=== PATIENT | female | born 1950 | race American Indian/Alaskan Native ===

== ENCOUNTER 2019-04-29 07:26 | Outpatient (CLI) | payer MEDICARE, BC ==
[2019-04-29 07:48] LABS: Hematocrit 37.6 % (30.3-42.9); Hemoglobin 12.8 gm/dl (10.1-14.3); Mean Corpuscular HGB Conc 34 % (30-34); Mean Corpuscular Volume 92 fl (79-97); Platelet Count 237 K/mm3 (140-440); Red Cell Distribution Width 14.2 % (13.2-15.2)
[2019-04-29 08:20] LABS: Alanine Aminotransferase 22 units/L (7-56); Albumin 3.9 g/dL (3.9-5); BUN/Creatinine Ratio 19; Blood Urea Nitrogen 19 mg/dL (7-17); Calcium 9.2 mg/dL (8.4-10.2); Chol/HDL Ratio 5.32 %; HDL Cholesterol 46 mg/dL (40-59); Hemolysis Index 4; LDL Cholesterol,Direct 185 mg/dL (50-130)
[2019-04-29 08:22] LABS: ABG Base Excess -0.3 mmol/L (-2.0-3.0); ABG Methemoglobin 0.4 % (0.0-1.5); ABG Oxygen Saturation 95.8 % (95.0-99.0); ABG PCO2 37.8 mm Hg; ABG PH 7.42 pH Units (7.350-7.450); ABG PO2 76.2 mm Hg (80.0-90.0)
--- NOTE | 2019-04-29 09:45 | Fluoroscopy Report ---
Contrast upper GI: History "heartburn indigestion reflux. Findings: Transit of barium through the esophagus is normal. No extrinsic or intrinsic filling defect in the esophagus. Gastric emptying appears normal. No evidence of gastric or duodenal ulcer. Evidence of gastritis. Multiple diverticula are noted the distal part of the duodenum adjacent to the jejunum. The diverticula are large. Small diverticulum is noted at the mid inner second part of duodenum the. No evidence of gastroesophageal reflux noted. Impression: No evidence of gastroesophageal reflux. Multiple diverticula along the duodenum. Evidence of gastritis.
== END 2019-04-29 07:27 | disposition home or self-care (01) ==
LOC: FLUORO 07:26
PROVIDERS: ATTEND Internal Medicine
DX: K57.30 Diverticulosis of large intestine without perforation or abscess without bleeding (principal); K29.70 Gastritis, unspecified, without bleeding; G47.33 Obstructive sleep apnea (adult) (pediatric); I10 Essential (primary) hypertension; K21.9 Gastro-esophageal reflux disease without esophagitis
CPT/HCPCS: 36415; 74247; 80053; 80061; 82785; 82803; 84436; 84443; 85027